=== PATIENT | female | born 1955 | race Two or more races ===

== ENCOUNTER → 2016-06-27 | Outpatient (CLI) | payer BC ==
--- NOTE | 2016-06-27 17:14 | RADRPT ---
PROCEDURE: Right knee radiographs. CLINICAL INDICATION: Right knee pain. TECHNIQUE: Three views. Weight bearing. Frontal, lateral, and patellar view. COMPARISON: No prior studies are available for comparison. FINDINGS: There is no fracture or dislocation. The soft tissues are normal. There are degenerative changes with osteophytes arising from all 3 joint compartment margins. There is no joint space narrowing or deformity. There is no lytic or blastic lesion. There is no radiopaque foreign body. IMPRESSION: 1. Mild degenerative changes of the right knee. 2. No acute abnormality. RPTAT: QQ .Ethan Abel MD, MD Date Time Electronically viewed and signed by .Ethan Abel MD, MD on 06/27/2016 17:13 .R/
--- NOTE | 2016-06-27 18:42 | HKNOTE ---
DATE OF SERVICE: 06/27/2016 MAIN COMPLAINT: Pain in the right knee. HISTORY OF MAIN COMPLAINT: The patient is a 60-year-old female who complains of pain in her right k nee. She has had the pain for some time, but it has gotten very much worse in the past 10 days. Th ere has not been any history of injury to the knee. A week ago, the pain was "severe" now it is "mo derate." The patient saw an orthopedic surgeon by the name of Dr. Childs and she gave her 3 Euflexxa injecti ons into the knee. She was not satisfied with his care, so she saw Dr. Hughes. The first injection h elped, the second and third did not help at all. He thought that her main problem was arthritis of the knee. PRESENT COMPLAINTS: The pain is localized to the back of the knee. Pain radiates down the leg. Sh russell had the pain continuously. The pain was severe, now it is moderate. The patient's pain is aggravated by walking, weightbearing and stair climbing. She does not get any rest pain, sometimes she gets pain at night. She takes Tylenol and with Motrin. She states that s he does not take very much. She uses a hot pad of the knee from time to time. She does have a hist ory of problems with her lower back. She had an injury to the back and was treated with physical nitesh. She no longer has any problems with her back. On a level surface, she can walk "long enough ." She does not use a walking aid. The knee swells and it locks and it frequently feels unstable. She does not limp. She can clip her toenails and tie her shoelaces. PAST ORTHOPEDIC HISTORY PREVIOUS ORTHOPEDIC OPERATIONS: None. PRIOR CORTISONE INJECTIONS: None. ALCOHOL INTAKE: None. OTHER JOINT PROBLEMS: None. BLOOD TESTS FOR ARTHRITIS: None. PRIOR INJURIES TO HIP OR KNEES: None. BLOOD TESTS FOR ARTHRITIS: None. 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 PAST MEDICAL HISTORY: Hypothyroid. PAST SURGICAL HISTORY: section. ALLERGIES: NONE LISTED. MEDICATIONS: 1. Levothyroxine 25 mcg every day. 2. Atorvastatin 10 mg a day. FAMILY HISTORY: Noncontributory. SYSTEMS REVIEW: Ankles occasionally swell, varicose veins, gait disturbance, otherwise entirely neg ative. HABITS: The patient does not smoke or drink alcoholic beverages. She tries to eat healthy. [employer]: Jaylen Malik [place]. PHYSICAL EXAMINATION GENERAL: On physical examination, the patient is a fit-looking muscular 60-year-old female. VITAL SIGNS: Height 5 feet 3 inches, weight 143 pounds. Blood pressure 110/60, temperature 98.2. GAIT: The patient's gait is mildly antalgic. She walks without a walking aid. HIPS: Both hips have full range of motion without pain. RIGHT KNEE: The right knee shows normal alignment. Active and passive extension lacks 5 degrees(mar ked pain). Active and passive flexion lacks 25 degrees (marked pain). The medial and lateral collate ral ligaments and cruciate ligaments are intact. Jesus test is negative. There is 2+ effusion. Th ere is no tenderness, scarring, or cysts. There is no tenderness on the articular surface of the pat jami or in the patellar groove. The Q angle is normal. The patella can be felt to track laterally. There is 3+ crepitus in the knee, none in the patella. IMAGING: Plain x-rays of the right knee obtained today at the [facility] were re viewed. These show mild narrowing of the medial joint space as well as the lateral patellofemoral j oint space. DIAGNOSIS: DISCUSSION: The patient has some of the classic symptoms of a torn meniscus. The knee shows signs of early degenerative osteoarthritis. MANAGEMENT: The patient is being sent for an MRI scan of the right knee and she will be seen again after she has had the MRI scan. Dictated By: MADELINE JOHNSON/TATIANA Conf#: [id number] DID#: [id number]
== END | disposition home or self-care (01) ==
LOC: HKI 15:03
DX: M17.11 Unilateral primary osteoarthritis, right knee (principal); M25.561 Pain in right knee
CPT/HCPCS: 73562; G0463

== ENCOUNTER → 2016-09-19 | Outpatient (CLI) | payer BC ==
[~2016-09-19] MED LIST: ATOR10TA65 PO; LEVO25TA53 PO
--- NOTE | 2016-09-25 03:21 | HKNOTE ---
DATE OF SERVICE: 09/19/2016 The patient comes in for preoperative evaluation. She is scheduled to have operative arthroscopy on her right knee on 09/20/2016 and has been cleared for surgery by Dr. Lua. She continues to have significant symptoms in her knee which seem to have even gotten worse when she was last seen. Nicolette ent was given a prescription for postoperative pain medication. The postoperative course was discus sed with her. The further details about the surgery were discussed with her. Numerous questions we re asked and answered. IMAGING: An MRI scan of the right knee obtained on 07/22/[address] Carpio as show ing tearing through the posterior horn of the lateral meniscus with horizontal tear component throug h the mid zone, mild degenerative changes predominantly affecting the lateral compartment. Patient is given a prescription for Sandwich 10/325 for postoperative pain. Dictated By: MADELINE JOHNSON/NTS Conf#: [id number] DID#: [id number]
== END | disposition home or self-care (01) ==
LOC: HKI 14:27
DX: M25.561 Pain in right knee (principal)
CPT/HCPCS: G0463

== ENCOUNTER 2016-09-20 09:56 | Day surgery (SDC) | payer BC ==
--- NOTE | 2016-09-19 09:59 | PREOPHP ---
DATE OF ADMISSION: 09/20/2016 HISTORY OF PRESENT ILLNESS: Mrs. Tabby Fountain, woman of 60 years of age, has been complaining of p ain on knee region on the right side after she described having a fall about a year ago. Evaluation by MRI revealed that she has a tear of the meniscus of the right knee. Accordingly, she is going t o undergo arthroscopy by Dr. Wolf. REVIEW OF SYSTEMS: The patient denies having any generalized symptoms such as fever, weight loss, s weating. She denies having any headaches, dizziness, fainting spells. She denies having any neck p ain, chest pain, shortness of breath or any GI or symptomatology. PAST MEDICAL HISTORY: Remarkable for mild hypothyroidism and hypercholesterolemia. MEDICATIONS: At the present time include: 1. Lipitor 10 mg one tablet daily. 2. Levothyroxine 25 mcg per day. PAST SURGICAL HISTORY: There is no history of surgery. FAMILY HISTORY: Remarkable for coronary artery disease in her brother. PHYSICAL EXAMINATION: GENERAL: Reveals a pleasant woman, she is known to me more than 5 years. VITAL SIGNS: Blood pressure is 120/80 and her weight 144 pounds. NECK: Supple. The thyroid was not enlarged. Both carotids were palpable and there was not any bru it. There was not any neck lymphadenopathy. CHEST WALL: Revealed normal. There was not any tenderness over the sternal bone. Breasts on gross examination appeared normal. HEART: Revealed normal sinus rhythm. She has tachycardia of about 100 per minute. There was not a ny gallop or any murmur. LUNGS: Clear to auscultation and percussion. ABDOMEN: Soft. There was not any organomegaly, or any palpable mass or any hernia. Bowel sounds a re present and active. EXTREMITIES: Revealed pain interspace of the right joint and flexion of the right knee induced quit e pain to the patient. Lower extremity was free of edema. Pulses in upper and lower extremities we re normal. NEUROLOGIC: Normal. LABORATORY DATA: The patient had preop lab tests on 09/13/2016. Her sugar was 79, potassium 4.5, s odium 140 and creatinine level was normal at 0.9. She has a normal PT, PTT and INR. CBC revealed w kaleb blood cell count 6.2, hemoglobin 14.3, hematocrit 43.1 and platelet count 369,000. Urine was e ssentially normal except trace occult blood. The patient had an electrocardiogram which revealed normal sinus rhythm at 94 [address] minute and some ST changes in the inferior lead. She has a normal chest x-ray. Regarding the sinus tachycardia, the patient underwent echocardiogram which revealed ejection fraction of 55% to 60% with a normal patter n of the john. There was mitral regurgitation mild in degree. Also, she was seen by Dr. Gómez of cardiology and she is very, very low risk for having this operation as far as her cardiac status is concerned. Overall, the patient is clear for surgical operation under local or general anesthesia. Thank you very much, Dr. Wolf, to allow me to participate, to take a history and physical of t his nice lady. LAKESHIA KITCHEN DICTATING FOR MADELINE KIM. Dictated By: MADELINE JOHNSON/NTS Conf#: [id number] DID#: [id number] CC: MADELINE WOLF MD; LAKESHIA MORRIS MD;*[facility]*
[2016-09-20] VITALS (12 sets, daily range): BP systolic 114–136; BP diastolic 67–85; PULSE 94–118; RESP 12–19; Ht 160 cm
[2016-09-20] MEDS ORDERED: ATOR10TA65 PO (10:26)
[2016-09-20] MEDS ORDERED: LEVO25TA53 PO (10:26)
[2016-09-20] MEDS ORDERED: VANCOMYCIN 1 GM (PMX) 250 ML ONE (11:20)
[2016-09-20] MEDS: LACTATED RINGER'S 1,000 ML IV* SCH ×2 (11:25→14:00)
[2016-09-20] MEDS ORDERED: LANSOPRAZOLE 30 MG CAP PO ONE (11:30)
[2016-09-20] MEDS ORDERED: VANCOMYCIN 1 GM in NS 250 ML IVPB SCH (11:30)
[2016-09-20] MEDS ORDERED: oxyCODONE (CR) 10 MG TAB [oxyCONTIN] PO ONE (11:30)
[2016-09-20] MEDS ORDERED: ONDANSETRON 4 MG INJ IV ONE (11:30)
[2016-09-20] MEDS ORDERED: DEXAMETHASONE 4 MG/ML 1 ML INJ IV ONE (11:30)
[2016-09-20] MEDS ORDERED: CELECOXIB 200 MG CAP PO ONE (11:30)
[2016-09-20] MEDS ORDERED: ACETAMINOPHEN 1000MG/100ML IV 100 ML IVPB ONE (11:30)
--- NOTE | 2016-09-20 12:50 | HPN ---
Date/Time of Note Date/Time of Note DATE: 09/20/16 TIME: 12:50 Interval H&P Admission Note Pt. seen H&P reviewed: No system changes MARY SOLORIO PA-C September 20, 2016 12:50
[2016-09-20] MEDS ORDERED: ROPIVACAINE 0.5 % 30 ML VIAL ONE (13:11)
[2016-09-20] MEDS ORDERED: BUPIVACAINE 0.25%/EPI (SDV) 30 ML INJ ONE (13:11)
[2016-09-20] MEDS ORDERED: KETOROLAC 30 MG INJ ONE (13:12)
[2016-09-20] MEDS ORDERED: morphine SULFATE/PF (10 MG/10 ML) INJ ONE (13:12)
[2016-09-20] MEDS ORDERED: LIDOCAINE 2% (SDV) 5 ML INJ ONE (13:33)
[2016-09-20] MEDS ORDERED: PROPOFOL 20 ML ONE (13:33)
[2016-09-20] MEDS ORDERED: MEPERIDINE 100 MG INJ ONE (13:33)
[2016-09-20] MEDS ORDERED: HYDROCODONE/APAP (10/325) TAB PO PRN (14:30)
[2016-09-20] MEDS ORDERED: HYDROCODONE/APAP (5/325) TAB PO PRN (14:30)
[2016-09-20] MEDS ORDERED: morphine 10 MG INJ IV PRN (14:30)
[2016-09-20] MEDS ORDERED: ACETAMINOPHEN 1000MG/100ML IV 100 ML IVPB SCH (14:30)
[2016-09-20] MEDS ORDERED: ONDANSETRON 4 MG INJ IV PRN ×2 (14:30→15:30)
[2016-09-20] MEDS ORDERED: HYDROmorphONE (0.2 MG/ML) 10ML SYG IV ONE (15:29)
[2016-09-20] MEDS ORDERED: morphine (1 MG/ML) 10ML SYRINGE IV PRN ×2 (15:30)
[2016-09-20] MEDS ORDERED: MIDAZOLAM 1 MG/ML 2 ML INJ IV PRN (15:30)
[2016-09-20] MEDS ORDERED: DIPHENHYDRAMINE 50 MG INJ IV PRN (15:30)
[2016-09-20] MEDS ORDERED: LABETALOL HCL 20MG INJ IV PRN (15:30)
[2016-09-20] MEDS ORDERED: hydrALAzine 20 MG INJ IV PRN (15:30)
[2016-09-20] MEDS ORDERED: HYDROmorphONE (0.2 MG/ML) 10ML SYG IV PRN ×2 (15:30)
[2016-09-20] MEDS ORDERED: EPHEDrine SULFATE 50 MG/5 ML SYG IV PRN (15:30)
[2016-09-20] MEDS ORDERED: FENTAnyl 50 MCG/ML VIAL IV PRN ×2 (15:30)
[2016-09-20] MEDS ORDERED: MEPERIDINE 25 MG INJ IV PRN (15:30)
[2016-09-20] MEDS ORDERED: METOCLOPRAMIDE 10 MG INJ IV PRN (15:30)
--- NOTE | 2016-09-20 16:52 | OPR ---
DATE OF OPERATION: 09/20/2016 SURGEON: Iraj Wolf MD SPRAY DRIER OPERATOR: ANESTHESIOLOGIST: Dr. Rowan. PREOPERATIVE DIAGNOSIS: Torn lateral meniscus of the right knee. POSTOPERATIVE DIAGNOSES: 1. Small horizontal cleavage tears of the posterior horn of the medial meniscus. 2. Horizontal cleavage tears of the posterior half of the lateral meniscus. 3. Compound tears of the anterior horn of the lateral meniscus. 4. Degenerative changes affecting the patellofemoral joint, the medial compartment and lateral comp artment. 5. Localized area of articular cartilage elevated from the lateral femoral condyle posteriorly rese mbling an osteochondral fragment, but without any bone attached. PROCEDURES: 1. Diagnostic arthroscopy. 2. Partial medial meniscectomy. 3. Partial lateral meniscectomy. 4. Chondroplasty. FINDINGS AT SURGERY: 1. The first immediate finding was that of grade II degenerative changes affecting the patella connolly llar and trochlear groove. On a scale of 1 to 10, these erosive changes were possibly a 5. 2. Small horizontal cleavage tears of the posterior horn of the medial meniscus which left the meni scus completely stable when they were removed. 3. Degenerative horizontal cleavage tears of the posterior half of the lateral meniscus. Once they were removed, The meniscus was completely stable. 4. Compound tears of the anterior half of the lateral meniscus. 5. Erosive changes on all of the joints with areas of normal articulating cartilage throughout most of the lateral and most of the medial femoral condyle. The osteochondral defect on the lateral femoral condyle was towards the posterior aspect of the knee superior to the meniscus. Once this had been debrided, no underlying articular cartilage was visi ble and there were no loose fragments in the cavity. DESCRIPTION OF PROCEDURE: Under general anesthetic, the right leg was prepared and draped in the [facility] sterile fashion. A tourniquet was not used. Standard inferomedial and inferolateral portals were used. The knee was systematically inspected an d the above findings were noted. Using a variety of basket forceps and the intra-articular shaver, a partial medial meniscectomy was performed. The remaining meniscus was balanced and stable. A light abrasion chondroplasty was perf ormed on an area of loose articular cartilage on the lateral portion of the weightbearing part of th e medial meniscus. The cruciates were found to be intact. The instruments were now moved to the lateral aspect of the knee. Using a variety of basket forceps and the motorized intraarticular shaver, a partial lateral meniscectomy was performed. The remaini ng meniscus was balanced and stable. The chondral defect mentioned above was now debrided using a m otorized intra-articular shaver. The defect was quite deep. There was no bone fragment with no loo se bone fragment within the defect. At the end of the procedure, the knee was copiously irrigated to remove all contained fragments. Th e wounds were sutured using interrupted nylon. The usual sterile dressings and a compression dressi ng were applied. Patient returned to recovery room in stable condition. There were no problems or complications as far as is known. Note that I met with the after the procedure and explained to him that there was a fairly ma rked degree of arthritic change within the knee that will cause her to have trouble later on. Dictated By: IRAJ JOHNSON/TATIANA Conf#: [id number] DID#: [id number]
[2016-09-20] MEDS ORDERED: ONDANSETRON 4 MG TAB PO ONE (18:30)
== END 2016-09-20 18:48 | disposition home or self-care (01) ==
LOC: SDS 09:56
DX: M23.241 Derangement of anterior horn of lateral meniscus due to old tear or injury, right knee (principal); M23.221 Derangement of posterior horn of medial meniscus due to old tear or injury, right knee; M17.11 Unilateral primary osteoarthritis, right knee; E03.9 Hypothyroidism, unspecified
CPT/HCPCS: 29880; J0131; J1100; J1170; J1885; J2175; J2274; J2405; J2795; J3370

== ENCOUNTER → 2016-09-25 | Outpatient (CLI) | payer BC ==
--- NOTE | 2016-09-25 15:27 | PN ---
Date/Time of Note Date/Time of Note DATE: 09/25/16 TIME: 15:23 Outpatient Progress Note Chief Complaint Postop visit for the right knee HPI 60-year-old female presents today for postoperative appointment status post right knee arthroscopy with partial medial and lateral meniscectomy as well as chondroplasty performed on 09/20/2016. Since the surgery, she states that her pain is significantly improved. She is having off and on pain to the right knee , usually with weightbearing, that can travel up to a 3/10 on the pain scale. She continues using one crutch while ambulating but states that she is becoming more confident with independent ambulation. She does have difficult time with change of posture from lying supine to sitting and with sitting to standing. Denies any falls. Denies any complications with wound. Denies any chest pain/ tightness, shortness of breath or calf pain. Review of Systems Const: No Fever, no chills, no Fatigue, normal appetite, no diaphoresis. Resp: No SOB, no wheezing, no chest pain. CV: No chest pain, no palpitaions, no LOCKHART. Physical Exam Blood pressure is 140/63, temperature is 99, pulse is 102, respiratory rate is 14, height is 5 feet 3 inches, weight is 138 pounds General Appearance: well-developed, well-nourished, in no acute distress. Right knee: After removal of dressing, surgical wounds are clean dry and intact. Sutures are intact. Mild bruising to the more medial surgical wound. Mild tenderness to palpation on exam today. Patient is able to fully extend and flex up to 100. Slight limp with ambulation. Using one crutch for assisted ambulation. Negative Homans sign. Normal sensory examination to light touch. Allergies Coded Allergies: No Known Allergy (Unverified , 09/20/16) Assessment/Plan * Dress change performed today. * Patient will follow-up next week for suture removal and repeat evaluation. * Prescription for physical therapy provided today as well as a list of locations close to the patient's residence. * At home therapy discussed. Wound care discussed. * Ice modalities encouraged. Anti-inflammatories as needed for pain. * Follow-up 1 week for suture removal and repeat evaluation. Dr. Wolf was present for exam and agrees with plan. Medications Home Meds Reported Medications Levothyroxine Sodium* (Levothyroxine Sodium*) 25 Mcg Tablet, 25 MCG PO BEFORE BREAKFAST, #30 TAB 09/20/16 Atorvastatin Calcium (Atorvastatin Calcium) 10 Mg Tablet, 10 MG PO QHS, #30 TAB 09/20/16 MARY SOLORIO PA-C September 25, 2016 15:27
== END | disposition home or self-care (01) ==
LOC: HKI 14:56
DX: Z47.89 Encounter for other orthopedic aftercare (principal); S83.281D Other tear of lateral meniscus, current injury, right knee, subsequent encounter; S83.241D Other tear of medial meniscus, current injury, right knee, subsequent encounter

== ENCOUNTER → 2016-10-02 | Outpatient (CLI) | payer BC ==
--- NOTE | 2016-10-02 15:51 | PN ---
Date/Time of Note Date/Time of Note DATE: 10/02/16 TIME: 15:48 Outpatient Progress Note Chief Complaint Follow-up status post right knee arthroscopy HPI 60-year-old female presents today for follow-up status post right knee arthroscopy performed on 09/20/2016 with partial medial and lateral meniscectomy. Patient states that her pain to the right knee is "much better." On average, she experiences 2-3/10 on the pain scale. Pain is usually with weightbearing. Pain with weightbearing is more of a mild discomfort per patient. 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 Denies any falls or injury. Denies any calf pain. Denies any chest pain/tightness. Symptoms have continued to improve. She has yet to initiate any physical therapy. Review of Systems Const: No Fever, no chills, no Fatigue, normal appetite, no diaphoresis. Resp: No SOB, no wheezing, no chest pain. CV: No chest pain, no palpitaions, no LOCKHART. Physical Exam Blood pressure is 114/62, temperature is 99.1, pulse is 111, respiratory rate is 13, height is 5 foot 3 inches, weight is 138 pounds General Appearance: well-developed, well-nourished, in no acute distress. Right knee: Slight limp with ambulation with mild discomfort. Sutures are clean dry and intact. No signs of infection. Bruising/ecchymosis has improved to the surgical wound. Patient is seated comfortably with knees at 90. About 5 lag from full extension. No tenderness to palpation today. Normal sensory examination to light touch. Allergies Coded Allergies: No Known Allergy (Unverified , 09/20/16) Assessment/Plan * Suture removal performed today. Area was cleaned and Steri-Strips applied. * Repeat prescription for physical therapy provided today as she lost her prescription from last week. She may initiate physical therapy. * Anti-inflammatories as needed for pain complaints. Pain medications on an as- needed basis. * Modified activities to alleviate pain or pressure from the knee. Continue ice modalities. Elevate the leg while at rest. * At this stage patient may follow-up as needed. Dr. Wolf was present for examination. He has reviewed arthroscopic pictures with the patient today. Has made patient aware that likely she will need total knee arthroplasty in the future. Medications Home Meds Reported Medications Levothyroxine Sodium* (Levothyroxine Sodium*) 25 Mcg Tablet, 25 MCG PO BEFORE BREAKFAST, #30 TAB 09/20/16 Atorvastatin Calcium (Atorvastatin Calcium) 10 Mg Tablet, 10 MG PO QHS, #30 TAB 09/20/16 MARY SOLORIO PA-C Oct 02, 2016 15:51
== END | disposition home or self-care (01) ==
LOC: HKI 15:27
DX: Z47.1 Aftercare following joint replacement surgery (principal); Z96.651 Presence of right artificial knee joint; M25.561 Pain in right knee